=== PATIENT | female | born 1970 | race Caucasian/White ===

== ENCOUNTER 2018-08-21 20:42 | Observation (INO) ==
[2018-08-21] MEDS ORDERED: 0.9 % Sodium Chloride 1,000 ML IVC ONE ×2 (20:51→22:43)
--- NOTE | 2018-08-21 20:52 | Emergency Department Note ---
Overdose - [facility] Narrative Medical decision making narrative: 48-year-old female presents emergency department with concern for overdose. Patient was initially given 0.4 of Narcan intranasally. She did not have miotic pupils and they were reactive to light. She did respond somewhat to the Narcan. She had episodes of agitation. Patient had a CT scan of the head did not reveal any intracranial abnormality. Urinalysis revealed positive for amphetamines, benzos, opiates. Patient been hemodynamically stable throughout her visit. She has rested comfortably after initial episodes of agitation. No signs of Cold meat depletion as vital signs of been stable throughout her stay. We will obtain a chest x-ray and a KUB out of concern for pill consumption. There was nothing seen on them per radiology. Kidney function is good. Initial Tylenol is negative. A repeat Tylenol has been ordered at 00 30 tomorrow morning. Salicylates are negative. Patient merited a hospitalist who agreed to accept the patient for admission. Patient has been pink slipped and has a sitter at bedside as is concern that this has been intentional. Chest X-Ray 08/21/18 20:51 IMPRESSION: No acute process. D/ / Winston Easton MD / Winston Easton MD Interpreting Provider: Winston Easton MD Head CT 08/21/18 20:52 IMPRESSION: No acute intracranial abnormality. D/ / Adrian Tan MD / Adrian Tan MD Interpreting Provider: Adrian Tan MD X-Ray 08/21/18 20:52 IMPRESSION: Nonspecific nonobstructive bowel gas pattern. D/ / 08/21/2018 21:03:59 Rene Merida MD / jamir Interpreting Provider: Rene Merida MD Vital Signs Temperature 97.6 F 08/21/18 20:44 Pulse Rate 70 08/21/18 20:44 Respiratory Rate 19 08/21/18 20:44 Blood Pressure 202/128 08/21/18 20:44 O2 Sat by Pulse Oximetry 98 08/21/18 20:44 Temperature 97.6 F 08/21/18 20:44 Pulse Rate 69 08/21/18 22:28 Respiratory Rate 14 08/21/18 22:28 Blood Pressure 169/97 08/21/18 22:28 O2 Sat by Pulse Oximetry 96 08/21/18 22:28 Oxygen Delivery Oxygen Delivery Room Air - Lab Data Result diagrams: 08/21/18 21:02 08/21/18 21:02 Lab Results 08/21/18 08/21/18 08/21/18 Range/Units 21:02 21:02 21:02 WBC 10.0 (4.3-11.1) K/mcL RBC 5.20 H (3.82-4.97) M/mcL Hgb 14.6 (11.5-15.4) g/dL Hct 44.5 (35.3-44.9) % MCV 85.6 (83.0-100.0) fL MCH 28.1 (28.0-33.3) pg MCHC 32.8 (31.6-35.5) g/dL RDW 13.2 (11.5-14.5) % Plt Count 244 (140-400) K/mcL MPV 10.5 (9.4-12.4) fL Immature Gran % 0.2 (0-4) % Seg Neutrophils % 46.4 % Lymphocytes % 44.5 % Monocytes % 6.2 % Eosinophils % 2.3 % Basophils % 0.4 % Neutrophils # 4.6 (1.6-8.9) K/mcL Lymphocytes # 4.5 (0.6-4.6) K/mcL Monocytes # 0.6 (0.0-1.3) K/mcL Eosinophils # 0.2 (0.0-0.6) K/mcL Basophils # 0.0 (0.0-0.2) K/mcL Carboxyhemoglobin 6.9 H (0-5) % Sodium 139 (136-145) mEq/L Potassium 3.6 (3.5-5.1) mEq/L Chloride 101 (98-107) mEq/L Carbon Dioxide 31 H (23-29) mEq/L BUN 10 (6-20) mg/dL Creatinine 0.70 (0.60-1.20) mg/dL Est GFR ( Amer) > 60 (> 60) Est GFR (Non-Af Amer) > 60 (> 60) BUN/Creatinine Ratio 14 (6-26) Glucose 90 (70-105) mg/dL Calculated Osmolality 287 (280-300) Calcium 9.6 (8.6-10.3) mg/dL Total Bilirubin 0.4 (0.3-1.0) mg/dL Direct Bilirubin 0.1 (0.0-0.2) mg/dL Indirect Bilirubin 0.3 (0.0-1.2) mg/dL AST 27 (13-39) Units/L ALT 21 (7-52) Units/L Alkaline Phosphatase 91 (34-104) Units/L Serum Total Protein 7.3 (6.4-8.9) g/dL Albumin 4.2 (3.5-5.7) g/dL Globulin 3.1 (2.4-3.5) g/dL Albumin/Globulin Ratio 1.4 (1.1-2.2) Urine Color (Yellow) Urine Clarity (Clear) Urine pH (5.0-8.0) pH Units Ur Specific [place] (1.010-1.025) Urine Protein (Neg-Trace) mg/dL Urine Glucose (UA) (Normal) mg/dL Urine Ketones (Negative) mg/dL Urine Blood (Negative) Urine Nitrite (Negative) Urine Bilirubin (Negative) Urine Urobilinogen (Normal) mg/dL Ur Leukocyte Esterase (Negative) Urine Test (Negative) Salicylates < 2.5 L (15.0-30.0) mg/dL Urine Opiates Screen (Dajirr=916) ng/mL Acetaminophen < 10 L (10-20) mcg/mL Ur Barbiturates Screen (Eynrdx=884) ng/mL Ur Phencyclidine Scrn (Cutoff=25) ng/mL Ur Amphetamines Screen (Whkmay=2483) ng/mL U Benzodiazepines Scrn (Pzstob=440) ng/mL Urine Cocaine Screen (Cutoff= 300) ng/mL U Marijuana (THC) Screen (Cutoff = 50) ng/mL Ur Drug Screen Interp Ethyl Alcohol < 10 (Less than 10) mg/dL 08/21/18 08/21/18 08/21/18 Range/Units 23:02 23:02 23:02 WBC (4.3-11.1) K/mcL RBC (3.82-4.97) M/mcL Hgb (11.5-15.4) g/dL Hct (35.3-44.9) % MCV (83.0-100.0) fL MCH (28.0-33.3) pg MCHC (31.6-35.5) g/dL RDW (11.5-14.5) % Plt Count (140-400) K/mcL MPV (9.4-12.4) fL Immature Gran % (0-4) % Seg Neutrophils % % Lymphocytes % % Monocytes % % Eosinophils % % Basophils % % Neutrophils # (1.6-8.9) K/mcL Lymphocytes # (0.6-4.6) K/mcL Monocytes # (0.0-1.3) K/mcL Eosinophils # (0.0-0.6) K/mcL Basophils # (0.0-0.2) K/mcL Carboxyhemoglobin (0-5) % Sodium (136-145) mEq/L Potassium (3.5-5.1) mEq/L Chloride (98-107) mEq/L Carbon Dioxide (23-29) mEq/L BUN (6-20) mg/dL Creatinine (0.60-1.20) mg/dL Est GFR ( Amer) (> 60) Est GFR (Non-Af Amer) (> 60) BUN/Creatinine Ratio (6-26) Glucose (70-105) mg/dL Calculated Osmolality (280-300) Calcium (8.6-10.3) mg/dL Total Bilirubin (0.3-1.0) mg/dL Direct Bilirubin (0.0-0.2) mg/dL Indirect Bilirubin (0.0-1.2) mg/dL AST (13-39) Units/L ALT (7-52) Units/L Alkaline Phosphatase (34-104) Units/L Serum Total Protein (6.4-8.9) g/dL Albumin (3.5-5.7) g/dL Globulin (2.4-3.5) g/dL Albumin/Globulin Ratio (1.1-2.2) Urine Color Yellow (Yellow) Urine Clarity Clear (Clear) Urine pH 7.5 (5.0-8.0) pH Units Ur Specific [place] 1.021 (1.010-1.025) Urine Protein Negative (Neg-Trace) mg/dL Urine Glucose (UA) Normal (Normal) mg/dL Urine Ketones Negative (Negative) mg/dL Urine Blood Negative (Negative) Urine Nitrite Negative (Negative) Urine Bilirubin Negative (Negative) Urine Urobilinogen Normal (Normal) mg/dL Ur Leukocyte Esterase Negative (Negative) Urine Test Negative (Negative) Salicylates (15.0-30.0) mg/dL Urine Opiates Screen Positive H (Yiduvo=803) ng/mL Acetaminophen (10-20) mcg/mL Ur Barbiturates Screen Negative (Wfqpmg=210) ng/mL Ur Phencyclidine Scrn Negative (Cutoff=25) ng/mL Ur Amphetamines Screen Positive H (Rrgymp=3959) ng/mL U Benzodiazepines Scrn Positive H (Dlqrjb=201) ng/mL Urine Cocaine Screen Negative (Cutoff= 300) ng/mL U Marijuana (THC) Screen Negative (Cutoff = 50) ng/mL Ur Drug Screen Interp See Below Ethyl Alcohol (Less than 10) mg/dL Overdose HPI - General Chief Complaint: ED Overdose Stated Complaint: OD Time Seen by Provider: 08/21/18 20:50 Source: patient, EMS Limitations: no limitations Nursing Notes Reviewed: Yes Vital Signs Reviewed: Yes - History of Present Illness HPI Narrative: 48-year-old female presents emergency department by EMS being found unresponsive in the car. Patient was not given any medications prior to arrival. Upon questioning, patient states that she did not take anything. She denies any use of any sepsis. She does report having pain medication at home but denies taking it today. Reports that she has had arguments with her at home. Patient denies any homicidal or suicidal ideations at this time. Denies any physical abuse, or recent trauma. Denies any pain anywhere. She states that she is just tired. - Related Data Home Medications Medication Instructions Recorded Confirmed No Known Home Drugs 08/21/18 08/21/18 Allergies Allergy/AdvReac Type Severity Reaction Status Date / Time azithromycin Allergy Rash Verified 01/23/18 12:56 [From Zithromax Z-Yao] hydrocodone Allergy Rash Verified 01/23/18 12:56 All systems ED: reviewed and negative except as stated. 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 Absent: respiratory distress, accessory muscle use - Cardiovascular Cardiovascular exam: Present: regular rate, normal rhythm, normal heart sounds - Abdominal Exam Abdominal exam: Present: soft, Non-Tender. Absent: distention, guarding, rebound, rigidity - Extremities Exam Extremities exam: Present: normal capillary refill - Back Exam Back exam: Present: full ROM - Neurological Exam Neurological exam: Present: alert, oriented X3, CN II-XII intact, other (GCS 15 , no pronator drift, no focal neurologic abnormalities.) - Psychiatric Psychiatric exam: Present: normal affect, normal mood - Skin Skin exam: Present: warm, dry, intact, normal color. Absent: rash Course Vital Signs Temperature 97.6 F 08/21/18 20:44 Pulse Rate 70 08/21/18 20:44 Respiratory Rate 19 08/21/18 20:44 Blood Pressure 202/128 08/21/18 20:44 O2 Sat by Pulse Oximetry 98 08/21/18 20:44 Temperature 97.6 F 08/21/18 20:44 Pulse Rate 69 08/21/18 22:28 Respiratory Rate 14 08/21/18 22:28 Blood Pressure 169/97 08/21/18 22:28 O2 Sat by Pulse Oximetry 96 08/21/18 22:28 Oxygen Delivery Oxygen Delivery Room Air Disposition Clinical Impression: Drug overdose Qualifiers: Encounter type: initial encounter Injury intent: undetermined intent Qualified Code(s): T50.904A - Poisoning by unspecified drugs, medicaments and biological substances, undetermined, initial encounter Disposition: Admitted As Inpatient Condition: Fair Referrals: NONE,PCP [Primary Care Provider] - Forms: ED Satisfaction Letter Time of Disposition: 23:51
[2018-08-21] MEDS ORDERED: Naloxone 0.4 MG/ML INJ ONE (20:55)
[2018-08-21] MEDS ORDERED: Naloxone 0.4 MG/ML INJ IVP ONE (20:59)
--- NOTE | 2018-08-21 21:02 | Emergency Department Note ---
Disposition Clinical Impression: Drug overdose Qualifiers: Encounter type: initial encounter Injury intent: undetermined intent Qualified Code(s): T50.904A - Poisoning by unspecified drugs, medicaments and biological substances, undetermined, initial encounter Disposition: Admitted As Inpatient Condition: Fair Referrals: NONE,PCP [Primary Care Provider] - Forms: ED Satisfaction Letter General Adult HPI - General Chief complaint: ED Overdose Stated complaint: OD Time Seen by Provider: 08/21/18 20:50 Source: patient, EMS Limitations: no limitations - History of Present Illness Pain Scale: 0 - Related Data Home Medications Medication Instructions Recorded Confirmed No Known Home Drugs 08/21/18 08/21/18 Allergies Allergy/AdvReac Type Severity Reaction Status Date / Time azithromycin Allergy Rash Verified 01/23/18 12:56 [From Zithromax Z-Yao] hydrocodone Allergy Rash Verified 01/23/18 12:56 Past Medical History - Past Medical History Medical history: Reports: non-contributory Surgical history: Reports: non-contributory, orthopedic, other (Left shoulder rotator cuff), other (Nasal surgery) Psychiatric history: Reports: no psych 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, bilateral tubal ligation, other - Social History Smoking Status: Never smoker Smokeless Tobacco Status: No Alcohol use: Reports: none Drug use: Reports: none Physical Exam - General Limitations: no limitations General appearance: alert, in no apparent distress Course Vital Signs Temperature 97.6 F 08/21/18 20:44 Pulse Rate 70 08/21/18 20:44 Respiratory Rate 19 08/21/18 20:44 Blood Pressure 202/128 08/21/18 20:44 O2 Sat by Pulse Oximetry 98 08/21/18 20:44 Temperature 97.6 F 08/21/18 20:44 Pulse Rate 67 08/22/18 00:00 Respiratory Rate 14 08/22/18 00:00 Blood Pressure 146/96 08/22/18 00:00 O2 Sat by Pulse Oximetry 94 08/22/18 00:00 Oxygen Delivery Oxygen Delivery Room Air Medical Decision Making - Lab Data Lab results reviewed: Yes I reviewed the patient's lab results. Result diagrams: 08/21/18 21:02 08/21/18 21:02 Lab Results 08/21/18 08/21/18 08/21/18 Range/Units 21:02 21:02 21:02 WBC 10.0 (4.3-11.1) K/mcL RBC 5.20 H (3.82-4.97) M/mcL Hgb 14.6 (11.5-15.4) g/dL Hct 44.5 (35.3-44.9) % MCV 85.6 (83.0-100.0) fL MCH 28.1 (28.0-33.3) pg MCHC 32.8 (31.6-35.5) g/dL RDW 13.2 (11.5-14.5) % Plt Count 244 (140-400) K/mcL MPV 10.5 (9.4-12.4) fL Immature Gran % 0.2 (0-4) % Seg Neutrophils % 46.4 % Lymphocytes % 44.5 % Monocytes % 6.2 % Eosinophils % 2.3 % Basophils % 0.4 % Neutrophils # 4.6 (1.6-8.9) K/mcL Lymphocytes # 4.5 (0.6-4.6) K/mcL Monocytes # 0.6 (0.0-1.3) K/mcL Eosinophils # 0.2 (0.0-0.6) K/mcL Basophils # 0.0 (0.0-0.2) K/mcL Carboxyhemoglobin 6.9 H (0-5) % Sodium 139 (136-145) mEq/L Potassium 3.6 (3.5-5.1) mEq/L Chloride 101 (98-107) mEq/L Carbon Dioxide 31 H (23-29) mEq/L BUN 10 (6-20) mg/dL Creatinine 0.70 (0.60-1.20) mg/dL Est GFR ( Amer) > 60 (> 60) Est GFR (Non-Af Amer) > 60 (> 60) BUN/Creatinine Ratio 14 (6-26) Glucose 90 (70-105) mg/dL Calculated Osmolality 287 (280-300) Calcium 9.6 (8.6-10.3) mg/dL Total Bilirubin 0.4 (0.3-1.0) mg/dL Direct Bilirubin 0.1 (0.0-0.2) mg/dL Indirect Bilirubin 0.3 (0.0-1.2) mg/dL AST 27 (13-39) Units/L ALT 21 (7-52) Units/L Alkaline Phosphatase 91 (34-104) Units/L Serum Total Protein 7.3 (6.4-8.9) g/dL Albumin 4.2 (3.5-5.7) g/dL Globulin 3.1 (2.4-3.5) g/dL Albumin/Globulin Ratio 1.4 (1.1-2.2) Urine Color (Yellow) Urine Clarity (Clear) Urine pH (5.0-8.0) pH Units Ur Specific [place] (1.010-1.025) Urine Protein (Neg-Trace) mg/dL Urine Glucose (UA) (Normal) mg/dL Urine Ketones (Negative) mg/dL Urine Blood (Negative) Urine Nitrite (Negative) Urine Bilirubin (Negative) Urine Urobilinogen (Normal) mg/dL Ur Leukocyte Esterase (Negative) Urine Test (Negative) Salicylates < 2.5 L (15.0-30.0) mg/dL Urine Opiates Screen (Szxxfv=858) ng/mL Acetaminophen < 10 L (10-20) mcg/mL Ur Barbiturates Screen (Yfsobp=091) ng/mL Ur Phencyclidine Scrn (Cutoff=25) ng/mL Ur Amphetamines Screen (Dyjdyn=5646) ng/mL U Benzodiazepines Scrn (Eqkpco=597) ng/mL Urine Cocaine Screen (Cutoff= 300) ng/mL U Marijuana (THC) Screen (Cutoff = 50) ng/mL Ur Drug Screen Interp Ethyl Alcohol < 10 (Less than 10) mg/dL 08/21/18 08/21/18 08/21/18 Range/Units 23:02 23:02 23:02 WBC (4.3-11.1) K/mcL RBC (3.82-4.97) M/mcL Hgb (11.5-15.4) g/dL Hct (35.3-44.9) % MCV (83.0-100.0) fL MCH (28.0-33.3) pg MCHC (31.6-35.5) g/dL RDW (11.5-14.5) % Plt Count (140-400) K/mcL MPV (9.4-12.4) fL Immature Gran % (0-4) % Seg Neutrophils % % Lymphocytes % % Monocytes % % Eosinophils % % Basophils % % Neutrophils # (1.6-8.9) K/mcL Lymphocytes # (0.6-4.6) K/mcL Monocytes # (0.0-1.3) K/mcL Eosinophils # (0.0-0.6) K/mcL Basophils # (0.0-0.2) K/mcL Carboxyhemoglobin (0-5) % Sodium (136-145) mEq/L Potassium (3.5-5.1) mEq/L Chloride (98-107) mEq/L Carbon Dioxide (23-29) mEq/L BUN (6-20) mg/dL Creatinine (0.60-1.20) mg/dL Est GFR ( Amer) (> 60) Est GFR (Non-Af Amer) (> 60) BUN/Creatinine Ratio (6-26) Glucose (70-105) mg/dL Calculated Osmolality (280-300) Calcium (8.6-10.3) mg/dL Total Bilirubin (0.3-1.0) mg/dL Direct Bilirubin (0.0-0.2) mg/dL Indirect Bilirubin (0.0-1.2) mg/dL AST (13-39) Units/L ALT (7-52) Units/L Alkaline Phosphatase (34-104) Units/L Serum Total Protein (6.4-8.9) g/dL Albumin (3.5-5.7) g/dL Globulin (2.4-3.5) g/dL Albumin/Globulin Ratio (1.1-2.2) Urine Color Yellow (Yellow) Urine Clarity Clear (Clear) Urine pH 7.5 (5.0-8.0) pH Units Ur Specific [place] 1.021 (1.010-1.025) Urine Protein Negative (Neg-Trace) mg/dL Urine Glucose (UA) Normal (Normal) mg/dL Urine Ketones Negative (Negative) mg/dL Urine Blood Negative (Negative) Urine Nitrite Negative (Negative) Urine Bilirubin Negative (Negative) Urine Urobilinogen Normal (Normal) mg/dL Ur Leukocyte Esterase Negative (Negative) Urine Test Negative (Negative) Salicylates (15.0-30.0) mg/dL Urine Opiates Screen Positive H (Eposng=166) ng/mL Acetaminophen (10-20) mcg/mL Ur Barbiturates Screen Negative (Zizubc=450) ng/mL Ur Phencyclidine Scrn Negative (Cutoff=25) ng/mL Ur Amphetamines Screen Positive H (Kopeqw=7098) ng/mL U Benzodiazepines Scrn Positive H (Nxerpl=543) ng/mL Urine Cocaine Screen Negative (Cutoff= 300) ng/mL U Marijuana (THC) Screen Negative (Cutoff = 50) ng/mL Ur Drug Screen Interp See Below Ethyl Alcohol (Less than 10) mg/dL - Radiology Data Radiology results reviewed: Yes I reviewed the patient's radiology results. Chest X-Ray 08/21/18 20:51 IMPRESSION: No acute process. D/ / Winston Easton MD / Winston Easton MD Interpreting Provider: Winston Easton MD Head CT 08/21/18 20:52 IMPRESSION: No acute intracranial abnormality. D/ / Adrian Tan MD / Adrian Tan MD Interpreting Provider: Adrian Tan MD X-Ray 08/21/18 20:52 IMPRESSION: Nonspecific nonobstructive bowel gas pattern. D/ / 08/21/2018 21:03:59 Rene Merida MD / jamir Interpreting Provider: Rene Merida MD - EKG Data EKG #1 EKG attestation: Yes I reviewed and interpreted this EKG. EKG results narrative: EKG shows a normal sinus rhythm with ventricular rate is 63. TN interval 93. No acute ST segment elevation or depression. No arrhythmia or ectopy. Critical Care Time Critical Care Time: Yes Total Critical Care Time: 45 Attestation: Critical care performed: Time is exclusive of separately billable procedures. Time includes: direct patient care, patient reassessment, coordination of patient care, interpretation of data (laboratory data, radiology data, and respiratory data), review of patient's medical records, medical consultation and documentation of patient care. Procedures included in critical care time: Procedures excluded from critical care time: Attestation Statement - Attestation Attestation: I, Jerry Chaparro MD, personally evaluated this patient and discussed their management with the resident physician. I reviewed the resident's note and agree with the documented findings, medical decision making, and plan of care. 48-year-old female persisted emergency department by EMS after she was found unresponsive in a parked vehicle. EMS reports on their arrival the patient was responsive but was drowsy. On arrival here in the emergency department the patient is very drowsy but responds to verbal stimuli. Speech is slow and slurred and she appears to be intoxicated or under the influence of sedating medication. Patient denies taking any medication or drinking any alcohol. She denies any suicidal ideation or intent. She states that she had an argument with her and drank some tea and then does not know how she got in the car where she was. She knows that she is at a hospital nail. She has no complaints other than just feels very tired and sleepy. On examination patient is a well-developed well-nourished female in no acute distress. She is drowsy but responds to verbal stimuli. She is oriented 3. There is no cyanosis or diaphoresis. PERRLA. No conjunctival injection or discharge. Neck is supple with no meningismus. Mucous membranes are moist. Breath sounds are clear and equal bilaterally. Heart regular rate and rhythm. Abdomen is soft and nontender with normal bowel sounds. No gross focal neurological deficits. Patient did receive Narcan 0.4 mg IV intranasal he. She did have some response to the intranasal Narcan with definite increase in the depth and frequency of her respirations and she became more alert and her speech was less slurred and slow. She later however became less responsive. She maintained normal vital signs on the monitor and was not given any further Narcan at this time. Labs reviewed. Tox screen positive for opiates, amphetamines, and benzodiazepines. Alcohol negative. No acute changes on EKG. Chest x-ray negative. Head CT negative. KUB negative. The hospitalist, Dr. Vasquez, was consulted and accepted admission of the patient.
[2018-08-21] MEDS ORDERED: Ondansetron 4 MG/2 ML VIAL IVP ONE (21:29)
[2018-08-21 21:36] LABS: Basophils % 0.4 %; Eosinophils # 0.2 K/mcL (0.0-0.6); Eosinophils % 2.3 %; Hematocrit 44.5 % (35.3-44.9); Hemoglobin 14.6 g/dL (11.5-15.4); Immature Granulocytes % 0.2 % (0-4); Lymphocytes # 4.5 K/mcL (0.6-4.6); Lymphocytes % 44.5 %; Mean Corpuscular HGB Conc 32.8 g/dL (31.6-35.5); Mean Corpuscular Hemoglobin 28.1 pg (28.0-33.3); Mean Corpuscular Volume 85.6 fL (83.0-100.0); Mean Platelet Volume 10.5 fL (9.4-12.4); Monocytes # 0.6 K/mcL (0.0-1.3); Monocytes % 6.2 %; Neutrophils # 4.6 K/mcL (1.6-8.9); Platelet Count 244 K/mcL (140-400); Red Cell Distribution Width 13.2 % (11.5-14.5); Segmented Neutrophils % 46.4 %
[2018-08-21 21:44] LABS: Acetaminophen < 10 mcg/mL (10-20); Alanine Aminotransferase 21 Units/L (7-52); Albumin 4.2 g/dL (3.5-5.7); Albumin/Globulin Ratio 1.4 (1.1-2.2); Alkaline Phosphatase 91 Units/L (34-104); Aspartate Amino Transferase 27 Units/L (13-39); BUN/Creatinine Ratio 14 (6-26); Bilirubin,Direct 0.1 mg/dL (0.0-0.2); Bilirubin,Indirect 0.3 mg/dL (0.0-1.2); Bilirubin,Total 0.4 mg/dL (0.3-1.0); Blood Urea Nitrogen 10 mg/dL (6-20); Calcium 9.6 mg/dL (8.6-10.3); Carbon Dioxide 31 mEq/L (23-29); Chloride 101 mEq/L (98-107); Ethanol < 10 mg/dL (Less than 10); Globulin 3.1 g/dL (2.4-3.5); Glucose 90 mg/dL (70-105); Osmolality,Calculated 287 (280-300); Potassium 3.6 mEq/L (3.5-5.1); Salicylate < 2.5 mg/dL (15.0-30.0); Sodium 139 mEq/L (136-145); Total Protein 7.3 g/dL (6.4-8.9); eGFR For Non-African Americans > 60 (> 60)
[2018-08-21 23:14] LABS: Bilirubin,Urine Negative (Negative); Blood,Urine Negative (Negative); Clarity,Urine Clear (Clear); Color,Urine Yellow (Yellow); Glucose,Urine (UA) Normal (Normal); Ketones,Urine Negative (Negative); Leukocyte Esterase,Urine Negative (Negative); Nitrite,Urine Negative (Negative); PH,Urine 7.5 pH Units (5.0-8.0); Protein,Urine Negative (Neg-Trace); Specific Gravity,Urine 1.021 (1.010-1.025); Urobilinogen,Urine Normal (Normal)
[2018-08-21 23:24] LABS: Amphetamine Screen,Urine Positive ng/mL (Cutoff=1000); Barbiturate Screen,Urine Negative ng/mL (Cutoff=200); Benzodiazepines Screen,Urine Positive ng/mL (Cutoff=200); Cannabinoid Screen,Urine Negative ng/mL (Cutoff = 50); Cocaine Screen,Urine Negative ng/mL (Cutoff= 300); Opiate Screen,Urine Positive ng/mL (Cutoff=300); Phencyclidine Screen,Urine Negative ng/mL (Cutoff=25)
--- NOTE | 2018-08-22 00:25 | Internal Med History&Physical ---
Date of Encounter: 08/22/18 Time of Encounter: 00:20 Internal Medicine - H&P: HPI Chief complaint: AMS Admitted From: Emergency Dept Plans for Post Hospital Care: Home History of present illness: History obtained from chart review and other providers as patient is too somnolent to engage in dialogue. Minoo Schmidt is a 48 year old woman with an unknown past medical history who is brought to the ER after being found poorly responsive in a car. She did not receive any medications en route. On arrival here she stated that she had not taken anything although confirming she uses a pain medication at home. She reported having had an argument with her earlier. She denied trauma , homicidal or suicidal intent. She denied being in pain and was just tired. She was notably drowsy with slow slurred speech but comprehensible. She had signs of intoxication or being under the influence of a sedative. UDS done was positive for opiates, amphetamines and benzos. She was given intranasal naloxone with some response elicited. Alcohol negative. She maintained normal vital signs but subsequently went back to sleep at the time of my assessment. She is admitted for observation. Unable to obtain past medical, social and family history due to somnolent state and unresponsiveness. 10 point review of systems limited due to the above reasons. Past Med Surg Social Fam HX - Past Medical History Medical history: non-contributory Additional medical history: bowel problems-Constipation Psychiatric history: no psych history - Past Surgical History Surgical History: non-contributory, orthopedic, other (Left shoulder rotator cuff), other (Nasal surgery) Additional surgical history: rotator cuff -L shoulder. plate in nose - Social History Smoking Status: Never smoker Smokeless Tobacco Status: No Alcohol use: none Drug use: none Internal Medicine - H&P: Meds No Known Home Drugs 08/21/18 [History] 3 Allergy/AdvReac Type Severity Reaction Status Date / Time azithromycin Allergy Rash Verified 01/23/18 12:56 [From Zithromax Z-Yao] hydrocodone Allergy Rash Verified 01/23/18 12:56 ROS unobtainable: due to mental status - Constitutional Vitals: Temp Pulse Resp BP Pulse Ox 97.6 F 67 14 146/96 94 08/21/18 20:44 08/22/18 00:00 08/22/18 00:00 08/22/18 00:00 08/22/18 00:00 Exam: Vitals: Reviewed and seen to be within normal limits. General: Well-developed white woman sleeping comfortably in bed. Skin: No lesions noted. Warm and supple. HEENT: Moist mucous membranes. No conjunctivae pallor. Neck: No lymphadenopathy. No JVD. No carotid bruits. No palpable thyroid. Chest: Normal thoracic expansion. No wheezing, rales or rhonchi. Heart: Normal S1 & S2; rhythmic. No rubs or murmurs. Abdomen: Non-distended, soft and no apparent tenderness to palpation. No peritoneal reaction. Extremities: No clubbing, cyanosis or edema. No calf tenderness. Normal distal pulses. Neurological: Somnolent but arousable to tactile stimuli. Moves all extremities actively when stimulated. Psych: Unable to assess due to mental status. Internal Med - H&P Results - Labs CBC & Chem 7: 08/21/18 21:02 08/21/18 21:02 Labs: Short CBC 08/21/18 Range/Units 21:02 WBC 10.0 (4.3-11.1) K/mcL Hgb 14.6 (11.5-15.4) g/dL Hct 44.5 (35.3-44.9) % Plt Count 244 (140-400) K/mcL Neutrophils # 4.6 (1.6-8.9) K/mcL BMP 08/21/18 21:02 Sodium 139 Potassium 3.6 Chloride 101 Carbon Dioxide 31 H BUN 10 Creatinine 0.70 Glucose 90 Calcium 9.6 Liver Function 08/21/18 Range/Units 21:02 Total Bilirubin 0.4 (0.3-1.0) mg/dL Direct Bilirubin 0.1 (0.0-0.2) mg/dL AST 27 (13-39) Units/L ALT 21 (7-52) Units/L Alkaline Phosphatase 91 (34-104) Units/L Albumin 4.2 (3.5-5.7) g/dL Urine 08/21/18 Range/Units 23:02 Urine Color Yellow (Yellow) Urine Clarity Clear (Clear) Urine pH 7.5 (5.0-8.0) pH Units Ur Specific [place] 1.021 (1.010-1.025) Urine Protein Negative (Neg-Trace) mg/dL Urine Glucose (UA) Normal (Normal) mg/dL - Impressions ITS Impressions Chest X-Ray 08/21/18 20:51 IMPRESSION: No acute process. D/ / Winston Easton MD / Winston Easton MD Interpreting Provider: Winston Easton MD Head CT 08/21/18 20:52 IMPRESSION: No acute intracranial abnormality. D/ / Adrian Tan MD / Adrian Tan MD Interpreting Provider: Adrian Tan MD X-Ray 08/21/18 20:52 IMPRESSION: Nonspecific nonobstructive bowel gas pattern. D/ / 08/21/2018 21:03:59 Rene Merida MD / [facility] Interpreting Provider: Rene Merida MD - Assessment and plan (1) Encephalopathy acute Current Visit: Yes Status: Acute Assessment and plan: Likely due to drug overdose noting the combination of benzos and opiates in her system. Will give another dose of naloxone to re-assess response. For now she is protecting her airways and hemodynamically stable. Head CT w/o anomaly. Will keep on fall and aspiration precautions. [place]-slipped due to unknown psychiatric history/intent and will keep on 1 to 1 observation. (2) Carboxyhemoglobinemia Current Visit: Yes Status: Acute Assessment and plan: Noted to have a slightly elevated CO level. Unclear if she is an active smoker as low level elevations can be seen in these cases however the fact that she was found in a car gives concern; we do not have report if the car was on or not however we should trend this as it could potentially become of concern and be a concomitant factor to her encephalopathic state. Will place on high-flow 100% oxygen and repeat a level in a few hours. Qualifiers: Encounter type: initial encounter Injury intent: undetermined intent Qualified Code(s): T58.94XA - Toxic effect of carbon monoxide from unspecified source, undetermined, initial encounter (3) Substance use disorder Current Visit: Yes Status: Acute Assessment and plan: Will require counseling and social work services. (4) Drug overdose Current Visit: Yes Status: Acute Assessment and plan: Unclear intent however the concomitance of benzos and opiates seems to have led to her sedated state at this time. Precautions to be implemented. Qualifiers: Encounter type: initial encounter Qualified Code(s): T50.904A - Poisoning by unspecified drugs, medicaments and biological substances, undetermined, initial encounter (5) DVT prophylaxis Current Visit: Yes Status: Acute Assessment and plan: SubQ heparin. - Time Spent With Patient Total time spent is greater than 50% in coordination of care (as documented) at patient's floor/unit and/or counseling patient: Greater than 35 minutes
[2018-08-22] MEDS ORDERED: D5% in Lactated Ringers 1,000 ML IVC SCH (00:45)
[2018-08-22] MEDS ORDERED: *HR* Methadone 10 MG TABLET PO ONE (04:19)
[2018-08-22] MEDS ORDERED: ALPRAZolam 0.25 MG TABLET PO ONE (04:23)
--- NOTE | 2018-08-22 04:27 | Event Note ---
Date of Encounter: 08/22/18 Time of Encounter: 04:24 The patient is now wide awake and restless since the administration of 2mg naloxone, notably restless and requesting to leave the hospital. It was explained that she is pink-slipped and cannot leave at this moment. She describes being at a gas station in a car then fell asleep but denies having taken any substance. She then admits to an addiction to "Percocet" and feels as though she is withdrawing now. Will give 10mg of methadone for acute withdrawal precipitated by nalaxone and 0.25mg of alprazolam for anxiolysis. She is now agreeable to staying in the hospital.
[2018-08-22] MEDS: *HR* Heparin 5,000 UNIT/ML VIAL SQ SCH ×2 (05:03→14:42)
--- NOTE | 2018-08-22 11:07 | Event Note ---
Date of Encounter: 08/22/18 Time of Encounter: 10:59 Patient seen and examined earlier this am by hospitalist, patient presented as an overdose- UDS done was positive for opiates, amphetamines and benzos. She was given intranasal naloxone with some response elicited. Alcohol negative., Unsure if intentional or accidental- she denies any suicidal ideation or drug use- however she expressed to night hospitalist-addiction to "Percocet" and was given methadone for withdrawal sx fron nalaxone- she does state that she has been fighting with her significant other but denies suicide ideation. She wants to leave to smoke She is pink slipped, explained I can give her nicotine patch for cravings She agreed- awaiting psych evaluation
[2018-08-22] MEDS ORDERED: Nicotine 21 MG PATCH.TD24 TD SCH (11:15)
--- NOTE | 2018-08-22 13:52 | Psychiatry Progress Note ---
Date of Encounter: 08/22/18 Time of Encounter: 13:46 Subjective Interval history: Psychiatric consult: 48 years old female admitted for evaluation of encephalopathy and possible carboxy hemoglobinemia, psychiatric consultation requested for evaluation of possible overdose. Available information records exclude any psychiatric history. Patient denies any previous history of treatment for mental health she denied any suicide attempts. She admits to using pain medication opiates and stimulants and benzodiazepine. UDS positive for opiates and amphetamine and benzodiazepine. Patient is aware of substance abuse and reporting some family issues and agreeable to have counseling for mental health and chemical dependency. Patient denied any intent to self-harm or overdose. Results - Vital Signs Vital Signs: Temp Pulse Resp BP Pulse Ox 98.0 F 71 18 130/82 98 08/22/18 11:16 08/22/18 11:16 08/22/18 11:16 08/22/18 11:16 08/22/18 11:16 - Labs Labs: Laboratory Results - last 24 hr 08/22/18 08/22/18 03:24 08:52 Carboxyhemoglobin 5.9 H 5.2 H Assessment and Plan (1) Substance use disorder Current visit: Yes Status: Acute Additional Plan: 1. Continue medical stabilization as needed. Patient may have some withdrawal symptoms from drugs. 2. Patient may benefit from referral to chemical dependency treatment to address substance abuse including opiates, stimulants and benzodiazepine. 3. Patient does not meet any criteria for inpatient psychiatric hospitalization and can be discharged when medically stable. Thank you for consultation Consult Discharge Plan - Plan Referrals: NONE,PCP [Primary Care Provider] - Psychiatry Exam - Constitutional Vitals: Temp Pulse Resp BP Pulse Ox 98.0 F 71 18 130/82 98 08/22/18 11:16 08/22/18 11:16 08/22/18 11:16 08/22/18 11:16 08/22/18 11:16 General appearance: age & developmentally appropriate, well-nourished, unkempt, thin - Musculoskeletal Gait: normal Station: relaxed Strength & Tone: normal for patient - Psychiatric Patient Orientation: Yes Person, Yes Time, Yes Place Level of alertness: Alert Behavior: calm, cooperative, anxious Psychomotor activity: Normal Eye Contact: Maintains Eye Contact Mood Description: Euthymic/stable, Anxious Affect description: congruent with mood, full range Speech Volume: Normal Speech pattern: normal rate, normal rhythm, normal tone, fluent, spontaneous, excessive Language & Vocabulary: consistent with education Thought Process: Linear, Goal Oriented, Racing Thought Content: No Suicidal ideation, No Homicidal ideation, No Overt delusions Perceptual Disturbances: No Auditory hallucinations, No Visual hallucinations Attention Span Ability: Capable of Focused Attention Memory Description: Grossly Intact Patient Reliability: Reliable Historian Fund of knowledge: Yes abstraction ability, Yes aware of current events Intelligence Estimate: Average Judgment: Limited Insight: Partial
[2018-08-22 15:27] VITALS: BP 150/96
--- NOTE | 2018-08-22 16:43 | Discharge Summary ---
- NOTES TO OUTPATIENT PROVIDER Notes to Outpatient Provider: patient is interested in outpatient mental health as well as Narcotics Anonymous-I did give her contact numbers for [facility] resources Date of Encounter: 08/22/18 Time of Encounter: 16:41 - Discharge Diagnosis (1) Drug overdose Priority: Primary Status: Acute Qualifiers: Encounter type: initial encounter Injury intent: accidental or unintentional Qualified Code(s): T50.901A - Poisoning by unspecified drugs, medicaments and biological substances, accidental (unintentional), initial encounter (2) Encephalopathy acute Priority: Secondary Status: Acute (3) Carboxyhemoglobinemia Priority: Secondary Status: Acute Qualifiers: Encounter type: initial encounter Injury intent: undetermined intent Qualified Code(s): T58.94XA - Toxic effect of carbon monoxide from unspecified source, undetermined, initial encounter (4) Substance use disorder Priority: Secondary Status: Acute Hospital course: Ms. Schmidt is a 48 year old female patient is a chronic smoker denies any other medical conditions. According to the patient she has been under a lot of stress and has been arguing with her . She states that she went out for drive and she has been very tired and has not been sleeping well she states she fell asleep in her car. She was found unresponsive and was brought to the ER for evaluation. She would appear to be intoxicated UDS was positive for opiates and amphetamines and benzos. Patient states that she has prescriptions for these medications however she cannot produce them during our conversation. Alcohol is negative. She was noted to have an elevated CO2 level is and she was found in a car and sugar was running or not she was placed on oxygen overnight. Her carboxyhemoglobin was trended appear to be trending down. Patient does admit to almost 2 pack-a-day smoker which could be contributing to the elevation in at this time it is ranging around 5.2. She received IV fluids , and [address] of head was normal. She slowly aroused and has been awake appropriate and following simple commands. She denies any suicidal ideations. She is alert and oriented 3 acute encephalopathy most likely secondary to drug overdose She was seen by psychiatry who did not feel she required any inpatient psychiatric treatment and can be discharged -follow-up as an outpatient. I did discuss outpatient treatment options for both mental health as well as substance abuse. She does verbalize interest in both. Nursing will contact crisis Center and obtained information concerning local mental health/substance abuse community resources available and provide contact information. We will also provide contact information to the residency clinic for follow-up. I did question patient concerning safety and if she felt safe going home she said yes she denies any physical abuse at home or any firearms within the home. She has had an elevatd BP gave a dose of lisinopril advised her that I woud like to monitor her overnight which she declined I would like to sign out AMA. Advised that she could develop low BP, if she uses and could possibly which she verbalized understanding and still wanted to leave AMA - Time Spent with Patient Total time spent providing and/or coordinating discharge services: - Discharge Medications Home Medications: OxyCODONE Immed Rel [Roxicodone 20 MG] 20 mg PO Q8H 08/22/18 [History] Oxymorphone HCl [Oxymorphone HCl ER] 20 mg PO 08/22/18 [History] Allergies/Adverse Reactions: 3 Allergy/AdvReac Type Severity Reaction Status Date / Time azithromycin Allergy Rash Verified 01/23/18 12:56 [From Zithromax Z-Yao] hydrocodone Allergy Rash Verified 01/23/18 12:56 Date of admission: 08/22/18 00:26 Primary care physician: PCP NONE Consults: 08/22/18 10:41 Consult to Psychiatry [CONS] Routine Consulting Provider: Psychiatry Tarsha Reason consult: [place] slip on chart [place] Slip initiated date and time: 08/21/2018 at 2100 Discharging clinician: Breanne Cavazos Anticipated date of discharge: 08/22/18 - Constitutional Vitals: Temp Pulse Resp BP Pulse Ox 98.6 F 86 17 150/96 100 08/22/18 15:27 08/22/18 15:27 08/22/18 15:27 08/22/18 15:27 08/22/18 15:27 Exam: Vitals: Reviewed and seen to be within normal limits. General: Well-developed white woman sleeping comfortably in bed. Skin: No lesions noted. Warm and supple. HEENT: Moist mucous membranes. No conjunctivae pallor. Neck: No lymphadenopathy. No JVD. No carotid bruits. No palpable thyroid. Chest: Normal thoracic expansion. No wheezing, rales or rhonchi. Heart: Normal S1 & S2; rhythmic. No rubs or murmurs. Abdomen: Non-distended, soft and no apparent tenderness to palpation. No peritoneal reaction. Extremities: No clubbing, cyanosis or edema. No calf tenderness. Normal distal pulses. Neurological: Somnolent but arousable to tactile stimuli. Moves all extremities actively when stimulated. Psych: Unable to assess due to mental status. - Patient Status Disposition: Left Against Medical Advice - Discharge Instructions Instructions: Benzodiazepine Abuse (GEN), Narcotic Abuse (DC) Follow Up With: NONE,PCP [Primary Care Provider] - (Please call our resident clinic to arrange an appointment : ) Additional Instructions: please look through the material provided to you regarding detox, outpatient treatment and substance abuse counseling. Please contact Crisis center at with any additional questions.
--- NOTE | 2018-08-24 13:23 | Electrocardiograph Report ---
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
== END 2018-08-22 17:50 | disposition left against medical advice (07) ==
LOC: EMEROOARM 20:42 → 3BNU 20:42
PROVIDERS: ADMIT Internal Medicine; ATTEND Internal Medicine